=== PATIENT | female | born 1985 | race African-American/Black ===

== ENCOUNTER 2016-11-29 02:14 | Emergency (ER) | payer OTHER ==
--- NOTE | 2016-11-29 02:42 | PDOC ---
[id number] Initial Comments: 11/29/16 03:02 The patient is a 30 year old female with no significant past medical history, who presents to the ER with itchy eyes, congested nose, and productive cough since 7PM last night. Patient reports she is coughing up clear phlegm. She says she has a loss of appetite secondary to the symptoms. Patient reports she is not able to fall asleep. She says she drank lots of liquids to stay hydrated without relief of symptoms. Denies history of allergies Denies fever, chills Denies nausea, vomiting, diarrhea Denies shortness of breath <Amy Zuluaga - Last Filed: 11/29/16 03:02> <Almita Platt - Last Filed: 11/30/16 22:05> - General Stated Complaint: SORE THROAT,ITCHING EYES Time Seen by Provider: 11/29/16 02:38 Past History <Amy Zuluaga - Last Filed: 11/29/16 03:02> <Almita Platt - Last Filed: 11/30/16 22:05> - Past Medical History Home Medications: Ambulatory Orders Loratadine [Claritin] 10 mg PO DAILY #30 tablet 11/29/16 Olopatadine HCl [Patanol] 1 drop OP BID #5 ml 11/29/16 Review of Systems - Review of Systems Comments:: 11/29/16 03:02 CONSTITUTIONAL: Absent: fever, no chills, no fatigue EYES: Absent: visual changes ENT: Present: (+) congested nose (+) itchy eyes Absent: ear pain, no sore throat CARDIOVASCULAR: Absent: chest pain, no palpitations RESPIRATORY: Present: (+) productive cough Absent: no SOB GI: Absent: abdominal pain, no nausea, no vomiting, no constipation, no diarrhea GENITOURINARY: Absent: dysuria, no frequency, no hematuria MUSCULOSKELETAL: Absent: back pain, no arthralgia, no myalgia SKIN: Absent: rash NEURO: Absent: headache <[email or web address] - Last Filed: 11/29/16 03:02> *Physical Exam - Physical Exam Comments: 11/29/16 03:04 GENERAL: Well-appearing, well-nourished. No apparent distress. HEENT: Normocephalic, atraumatic. PERRL, EOM intact. CARDIOVASCULAR: Normal S1, S2. Regular rate and rhythm. PULMONARY: Clear to auscultation bilaterally. ABDOMEN: Soft, non-distended, non-tender. EXTREMITIES: Normal ROM in all four extremities. No gross deformities. SKIN: Warm, dry. No rash NEUROLOGICAL: No focal neurological deficits. <Amy Zuluaga - Last Filed: 11/29/16 03:02> Medical Decision Making - Medical Decision Making 11/30/16 22:01 Pt comes with seasonal allergies. She will be treated with patanol and claritin. However, later patient tells us that she was cleaning her home with bleach and ammonia and likely exposed herself to chlorine gas. Fortunately home windows were open and her exposure was limited. Pt's exam is normal; lungs clear and pulsox good. <Almita Platt - Last Filed: 11/30/16 22:05> *DC/Admit/Observation/Transfer - Attestations Scribe Attestion: 11/29/16 03:05 Documentation prepared by Amy Zuluaga, acting as medical equipment technician for Almita Platt MD. <Amy Zuluaga - Last Filed: 11/29/16 03:02> - Discharge Dispostion Admit: No <Almita Platt - Last Filed: 11/30/16 22:05> Diagnosis at time of Disposition: Allergic reaction - Discharge Dispostion Disposition: HOME Condition at time of disposition: Stable - Prescriptions Prescriptions: Loratadine [Claritin] 10 mg PO DAILY #30 tablet Olopatadine HCl [Patanol] 1 drop OP BID #5 ml - Referrals Referrals: Aimee Mosquera MD [Primary Care Provider] - Kenneth Matute MD [Staff Physician] - - Patient Instructions Printed Discharge Instructions: DI for Eye Allergic Reaction
[2016-11-29] MEDS ORDERED: diphenhydrAMINE HCL 25 MG CAPSULE (FP) PO ONE ×2 (03:01→03:32)
[2016-11-29 03:59] VITALS: BP 138/75; PULSE 80; TEMP 98.3; BMI 23.6
== END 2016-11-29 04:09 | disposition home or self-care (01) ==
LOC: JER 02:14
DX: T54.3X1A Toxic effect of corrosive alkalis and alkali-like substances, accidental (unintentional), initial encounter (principal); T54.91XA Toxic effect of unspecified corrosive substance, accidental (unintentional), initial encounter; R05 Cough; H57.8 Other specified disorders of eye and adnexa; Y93.E9 Activity, other interior property and clothing maintenance; Y92.038 Other place in apartment as the place of occurrence of the external cause
CPT/HCPCS: 99282-25